=== PATIENT | female | born 2000 ===

== ENCOUNTER 2024-09-03 05:13 | Inpatient (IN) | payer SELFPAY ==
[2024-09-03] MEDS: Lactated Ringers 1,000 ML IV SCH (05:30)
[2024-09-03] MEDS ORDERED: Sodium Chloride 0.9% 2.5 ML Syringe FLUSH PRN (05:52)
[2024-09-03] MEDS ORDERED: Sodium Chloride 0.9% 20 ML SDV IV PRN (05:52)
[2024-09-03] MEDS ORDERED: Sodium Chloride 0.9% 10 ML Syringe FLUSH PRN (05:52)
[2024-09-03] MEDS ORDERED: Oxytocin/0.9 % Sodium Chloride 30 UNIT/500 ML BAG IV SCH (06:00)
[2024-09-03 06:09] LABS: HEMATOCRIT 33.1 % (37.0-47.0); HEMOGLOBIN 11.4 g/dL (12.0-16.0); MEAN CORPUSCULAR HEMOGLOBIN 28.7 pg (28.0-32.0); MEAN CORPUSCULAR HGB CONC 34.4 g/dL (32.0-36.0); MEAN CORPUSCULAR VOLUME 83.4 fL (83.0-99.0); MEAN PLATELET VOLUME 11.3 fL (9.4-12.3); PLATELET COUNT,PLT 194 K/uL (150-400); RED BLOOD CELL COUNT 3.97 M/uL (4.10-5.30); WHITE BLOOD CELL COUNT,WBC 8.54 K/uL (3.9-11.3)
[2024-09-03] MEDS ORDERED: Oxytocin 10 Units/1 ML SDV ONE (06:55)
[2024-09-03] MEDS ORDERED: droPERidol 5 MG/2 ML SDV ONE (06:55)
[2024-09-03] MEDS ORDERED: Ondansetron 4 MG/2 ML SDV ONE (06:55)
[2024-09-03] MEDS ORDERED: Tranexamic Acid 1,000 MG/10 ML Vial ONE (06:55)
[2024-09-03] MEDS ORDERED: dexmedeTOMIDine HCl 200 MCG/2 ML SDV ONE (06:55)
[2024-09-03] MEDS ORDERED: Calcium Chloride 10% 1 GM/10 ML Syringe ONE (06:55)
[2024-09-03] MEDS ORDERED: ceFAZolin 2 GM Vial ONE (06:55)
[2024-09-03] MEDS ORDERED: fentaNYL 100 MCG/2 ML SDV ONE (06:55)
[2024-09-03] MEDS ORDERED: Morphine PF 10 MG/10 ML SDV ONE (06:56)
[2024-09-03] MEDS ORDERED: Water For Injection, Sterile 20 ML ONE (06:57)
[2024-09-03] MEDS ORDERED: Phenylephrine 1% 10 MG/ML SDV ONE (06:57)
[2024-09-03] MEDS ORDERED: ePHEDrine 50 MG/ML SDV ONE (06:58)
[2024-09-03] MEDS ORDERED: Ropivacaine 0.5% 5 MG/ML 30 ML SDV ONE (07:01)
[2024-09-03] MEDS ORDERED: Nalbuphine 10 MG/1 ML Vial IVPUSH PRN (07:33)
[2024-09-03] MEDS ORDERED: diphenhydrAMINE 50 MG/ML SDV IVPUSH PRN ×2 (07:33→08:10)
[2024-09-03] MEDS ORDERED: Albuterol 0.083% 2.5 MG/3 ML Neb Soln NEB PRN (07:33)
[2024-09-03] MEDS ORDERED: Phenylephrine HCl In 0.9% NaCl 1 MG/10 ML Syringe IVPUSH PRN (07:33)
[2024-09-03] MEDS ORDERED: Acetaminophen/oxyCODONE 325-5 MG Tab PO PRN ×2 (07:33→08:10)
[2024-09-03] MEDS ORDERED: fentaNYL 100 MCG/2 ML SDV IVPUSH PRN (07:33)
[2024-09-03] MEDS ORDERED: Ondansetron 4 MG/2 ML SDV IVPUSH PRN ×3 (07:33→08:10)
[2024-09-03] MEDS ORDERED: fentaNYL 50 MCG/ML SDV IVPUSH PRN (07:33)
[2024-09-03] MEDS ORDERED: HYDROmorphone 1 MG/ML Syringe IVPUSH PRN (07:33)
[2024-09-03] MEDS ORDERED: Metoclopramide 10 MG/2 ML SDV IVPUSH PRN (07:33)
[2024-09-03] MEDS ORDERED: Morphine 2 MG/ML SYRINGE IVPUSH PRN (07:33)
[2024-09-03] MEDS ORDERED: Naloxone 0.4 MG/ML SDV IVPUSH PRN (07:33)
[2024-09-03] MEDS ORDERED: Lanolin 100% Cream 7 GM Tube TOP PRN (08:10)
[2024-09-03] MEDS ORDERED: Bisacodyl 10 MG Supp RECTAL PRN (08:10)
[2024-09-03] MEDS ORDERED: Oxytocin 10 Units/1 ML SDV IM PRN (08:10)
[2024-09-03] MEDS ORDERED: Misoprostol 200 MCG Tab RECTAL PRN (08:10)
[2024-09-03] MEDS ORDERED: Methylergonovine 0.2 MG/1 ML Amp IM PRN (08:10)
[2024-09-03] MEDS ORDERED: Lactated Ringers 1,000 ML IV SCH (08:15)
[2024-09-03] MEDS ORDERED: Midazolam 1 MG/ML 2 ML SDV ONE (08:22)
[2024-09-03] MEDS ORDERED: Propofol 200 MG/20 ML SDV ONE (08:49)
[2024-09-03] MEDS: Ketorolac 30 MG/ML SDV IVPUSH SCH (11:35)
[2024-09-03] MEDS: Docusate Sodium 100 MG Cap PO SCH (11:41)
[2024-09-03] MEDS: Acetaminophen 1,000 MG in Premix Bag 1 BAG IV SCH ×2 (13:34→19:12)
[2024-09-04 06:12] LABS: HEMATOCRIT 29.2 % (37.0-47.0); HEMOGLOBIN 10.1 g/dL (12.0-16.0)
[2024-09-04] MEDS: ceFAZolin 2 GM in Sodium Chloride 0.9% 50 ML IV ONE (07:13)
[2024-09-04] MEDS: Citric Acid/Sodium Citrate Solution 30 ML Cup PO ONE (07:13)
[2024-09-04] MEDS: Acetaminophen/oxyCODONE 325-5 MG Tab PO PRN (19:20)
[2024-09-04] MEDS: Ibuprofen 800 MG Tab PO PRN (20:01)
== END 2024-09-05 10:53 | disposition home or self-care (01) | DRG 788 ==
LOC: MW.OB 05:13 → EDSTATUS 09-09 16:22
PROVIDERS: ADMIT Obstetrics & Gynecology Obstetrics; ATTEND Obstetrics & Gynecology Obstetrics
PROC: 10D00Z1 Extraction of Products of Conception, Low, Open Approach (ICD-10-PCS; principal; 2024-09-04)
DX: O34.211 Maternal care for low transverse scar from previous cesarean delivery (principal); O77.0 Labor and delivery complicated by meconium in amniotic fluid; O99.214 Obesity complicating childbirth; E66.01 Morbid (severe) obesity due to excess calories; O90.81 Anemia of the puerperium; Z3A.39 39 weeks gestation of pregnancy; Z37.0 Single live birth
CPT/HCPCS: 01961; 36415; 64999; 85014; 85018; 85027; 86592; 86850; 86900; 86901; A9270-GY; J0131; J0690; J1100; J1790; J1885; J2250; J2274; J2371; J2405; J2590; J2704; J2795; J3010; J3490; J7120

== ENCOUNTER 2025-04-22 01:51 | Emergency (ER) | payer SELFPAY ==
[2025-04-22 02:34] LABS: BASOPHILS ABSOLUTE AUTO 0.03 K/uL (0.00-0.20); BASOPHILS PERCENT AUTO 0.4 % (0.0-1.0); EOSINOPHILS ABSOLUTE AUTO 0.06 K/uL (0.00-0.45); EOSINOPHILS PERCENT AUTO 0.8 % (0.0-6.0); IMMATURE GRAN ABSOLUTE AUTO 0.01 K/uL (0.00-0.05); IMMATURE GRAN PERCENT AUTO 0.1 % (0.0-0.4); LYMPHOCYTES ABSOLUTE AUTO 1.80 K/uL (1.00-4.80); LYMPHOCYTES PERCENT AUTO 25.2 % (24.0-44.0); MEAN PLATELET VOLUME 11.2 fL (9.4-12.3); MONOCYTES ABSOLUTE AUTO 0.45 K/uL (0.00-0.80); MONOCYTES PERCENT AUTO 6.3 % (0.0-8.0); NEUTROPHILS ABSOLUTE AUTO 4.78 K/uL (1.80-7.70); NEUTROPHILS PERCENT AUTO 67.2 % (41.0-71.0); NRBC ABSOLUTE 0.00 K/uL (0.00-0.02); NRBC PERCENT 0.0 /100WBC (0.0-0.2); PLATELET COUNT,PLT 177 K/uL (150-400); RED BLOOD CELL COUNT 4.01 M/uL (4.10-5.30); WHITE BLOOD CELL COUNT,WBC 7.13 K/uL (3.9-11.3)
[2025-04-22 02:55] LABS: A/G RATIO 0.9 (0.9-1.6); ALANINE AMINOTRANSFERASE,ALT 21 IU/L (14-63); ASPARTATE AMNIOTRANSFERASE,AST 14 IU/L (15-37); BILIRUBIN TOTAL 0.2 mg/dL (0.2-1.0); BLOOD UREA NITROGEN,BUN 10 mg/dL (7.0-18.0); CARBON DIOXIDE,CO2 24.5 mmol/L (21.0-32.0); CHLORIDE,CL 103 mmol/L (98-107); CREATININE 0.7 mg/dL (0.6-1.0); GLUCOSE RANDOM 106 mg/dL (74-106); POTASSIUM,K 3.8 mmol/L (3.5-5.1); PROTEIN TOTAL,TP 7.2 g/dL (6.4-8.2); SODIUM,NA 138 mmol/L (136-145)
[2025-04-22 02:57] LABS: ESTIMATED GFR 123 mL/min (>60)
[2025-04-22 03:18] LABS: APPEARANCE,URINE SLT CLOUDY; GLUCOSE,URINE NEGATIVE (NEGATIVE); OCCULT BLOOD,URINE LARGE (NEGATIVE)
[2025-04-22 03:31] LABS: SQUAMOUS EPITHELIAL CELLS,UR MODERATE
[2025-04-22 03:54] LABS: APPEARANCE,URINE SLT CLOUDY; GLUCOSE,URINE NEGATIVE (NEGATIVE); OCCULT BLOOD,URINE LARGE (NEGATIVE)
[2025-04-22 04:01] LABS: SQUAMOUS EPITHELIAL CELLS,UR MODERATE
[2025-04-22] MEDS: Ondansetron 4 MG/2 ML SDV IVPUSH ONE (04:01)
[2025-04-22] MEDS: cefTRIAXone 2 GM in Water For Injection, Sterile 20 ML IVPUSH ONE (04:19)
== END 2025-04-22 09:00 ==
LOC: MW.ED 01:51
DX: O23.01 Infections of kidney in pregnancy, first trimester (principal); N13.6 Pyonephrosis; O99.011 Anemia complicating pregnancy, first trimester; Z79.899 Other long term (current) drug therapy; Z3A.10 10 weeks gestation of pregnancy
CPT/HCPCS: 36415; 76770; 76801; 80053; 81001; 83690; 84702; 85025; 96361; 96374; 96375; 99285; A9270; J0696; J2405; J7030; 99284

== ENCOUNTER 2025-05-08 23:12 | Emergency (ER) | payer SELFPAY ==
[2025-05-09 00:34] LABS: BASOPHILS ABSOLUTE AUTO 0.02 K/uL (0.00-0.20); BASOPHILS PERCENT AUTO 0.3 % (0.0-1.0); EOSINOPHILS ABSOLUTE AUTO 0.07 K/uL (0.00-0.45); EOSINOPHILS PERCENT AUTO 0.9 % (0.0-6.0); IMMATURE GRAN ABSOLUTE AUTO 0.03 K/uL (0.00-0.05); IMMATURE GRAN PERCENT AUTO 0.4 % (0.0-0.4); LYMPHOCYTES ABSOLUTE AUTO 1.46 K/uL (1.00-4.80); LYMPHOCYTES PERCENT AUTO 18.4 % (24.0-44.0); MEAN PLATELET VOLUME 11.0 fL (9.4-12.3); MONOCYTES ABSOLUTE AUTO 0.52 K/uL (0.00-0.80); MONOCYTES PERCENT AUTO 6.6 % (0.0-8.0); NEUTROPHILS ABSOLUTE AUTO 5.83 K/uL (1.80-7.70); NEUTROPHILS PERCENT AUTO 73.4 % (41.0-71.0); NRBC ABSOLUTE 0.00 K/uL (0.00-0.02); NRBC PERCENT 0.0 /100WBC (0.0-0.2); PLATELET COUNT,PLT 197 K/uL (150-400); RED BLOOD CELL COUNT 3.87 M/uL (4.10-5.30); WHITE BLOOD CELL COUNT,WBC 7.93 K/uL (3.9-11.3)
[2025-05-09 01:13] LABS: BLOOD UREA NITROGEN,BUN 10.0 mg/dL (7.0-18.0); CARBON DIOXIDE,CO2 24.9 mmol/L (21.0-32.0); CHLORIDE,CL 103.0 mmol/L (98-107); CREATININE 0.8 mg/dL (0.6-1.0); EST CRCL DRUG DOSING (CG) 82.75 mL/min; ESTIMATED GFR 105.0 mL/min (>60); GLUCOSE RANDOM 111.0 mg/dL (74-106); HCG QUANTITATIVE 55212.0 mIU/mL; POTASSIUM,K 3.7 mmol/L (3.5-5.1); SODIUM,NA 138.0 mmol/L (136-145)
== END 2025-05-09 01:35 | disposition home or self-care (01) ==
LOC: MW.ED 23:12
DX: O20.8 Other hemorrhage in early pregnancy (principal); Z3A.11 11 weeks gestation of pregnancy
CPT/HCPCS: 36415; 76815; 80048; 84702; 85025; 99284; A9270; 99283